=== PATIENT | female | born 1970 | race Caucasian/White ===

== ENCOUNTER → 2020-08-26 10:08 | Outpatient (CLI) | payer BC, SELFPAY ==
--- NOTE | 2020-08-26 10:08 | MM_ITS ---
PROCEDURE INFORMATION: Exam: MG Screening 3D Mammography Exam date and time: 08/26/2020 10:08 AM Age: 49 years old Clinical indication: Screening mammogram TECHNIQUE: Imaging protocol: Screening tomosynthesis and 2D mammography including computer-aided detection (CAD) when performed. COMPARISON: No relevant prior studies available. FINDINGS: MAMMOGRAPHY: Breast composition: There are scattered areas of fibroglandular density. Mass: None. Architectural distortion: No new or suspicious architectural distortion. Calcifications: benign-appearing calcifications are present. No new or suspicious cluster of microcalcifications have developed. Asymmetric density: No new or suspicious asymmetric density is present Skin thickening: None. Axillary adenopathy: None. IMPRESSION: No mammographic evidence of malignancy. Recommend annual screening mammography unless otherwise clinically indicated. ASSESSMENT: BI-RADS category 2: Benign
== END ==
PROVIDERS: PCP Family Medicine; Visit Provider Obstetrics & Gynecology
DX: Z12.31 Encounter for screening mammogram for malignant neoplasm of breast (principal)
CPT/HCPCS: 77063; 77067

== ENCOUNTER 2025-03-10 05:25 | Emergency (ER) | payer BC, SELFPAY ==
[2025-03-10] VITALS (16 sets, daily range): BP systolic 95–124; BP diastolic 54–74; PULSE 70–114; RESP 16; TEMP 36.8–36.9; O2SAT 96–100; BMI 31.3
--- NOTE | 2025-03-10 05:30 | XR_ITS ---
PROCEDURE INFORMATION: Exam: XR Chest Exam date and time: 03/10/2025 5:48 AM Age: 54 years old Clinical indication: Other: Cardiac workup TECHNIQUE: Imaging protocol: Radiologic exam of the chest. Views: 1 view. COMPARISON: No relevant prior studies available. FINDINGS: Lungs: Unremarkable. No consolidation. Pleural spaces: Unremarkable. No pleural effusion. No pneumothorax. Heart/Mediastinum: Unremarkable. No cardiomegaly. Bones/joints: Unremarkable. IMPRESSION: No acute findings.
--- NOTE | 2025-03-10 05:32 | ECG_ITS ---
APPROVED REPORT Exam: Resting ECG HR:96 bpm ECG Measurements Heart Rate 96 AXES AK 141 P 55 QRSd 98 QRS 27 QT 353 T 55 QTc 406 Conclusion SINUS RHYTHM NORMAL ECG Electronically signed by : JESSE SOUSA, 03/11/2025 07:08:19
--- OUTSIDE RECORDS SUMMARY | 2025-03-10 05:32 | XMS_ITS | Clinical Summary ---
Author Organization [facility] Address [address] [place] [address] Care Team Providers Care Rn Cvor Name Role Phone Unavailable Primary Care Provider Unavailabl e Social History Tobacco Use Types Packs/Day Years Used Date Smoking Tobacco: Never Assessed Abuse Screen Answer Date Recorded Unsafe at Home or Work/School Not on file Feels Threatened by Someone? Not on file 11/2022 Does Anyone Keep You from Co ntacting Others or Doint Things Outside the Home? Not on file 12/25/2022 Physical Sign of Abuse Present Not on file 1 Housing Stability Answer Date Recorded Current Living Arrangements Not on file 11/2022 Potentially Unsafe Housing Conditions Not on magali e 12/25/2022 Family and Community Support Answer Kobi e Recorded Help with Day-to-Day Activities Not on file 12/25/2022 Lonely or Isolated Not on file 12/25/2022 Employment Answer Date Recorded Do you want help finding or keeping work or a randall b? Not on file 12/25/2022 Disabilities Answer Date Recorded Concentrating, Remembering, or Making Decisions Difficulty Not on file 12/25/2022 Doing Errands Independently Difficulty Not on fi le 12/25/2022 Education Answer Date Recorded Help with school or training? Not on file Preferred Language Not on file 12/25/2022 Comments Unknown Sex and Gender Information Value Date Recorded Sex Assigned at Not on file Legal Sex Female 11:51 AM EDT Gender Identity Not on file Sexual Orientation Not on file Plan of Treatment Health Maintenance Due Date Last Done Comments ANNUAL PHYSICAL 1969 Annual Gynecologic Pelvic and Breast Exam 1969 HEPATITIS C SCREENING 1969 TDAP/TD VACCINES (1 - Tdap) 1988 MAMMOGRAM 2009 COLOGUARD 2014 COLON CANCER SCREENING 5 YEAR SIGMOIDOSCOPY 2014 COLONOSCOPY [address] CANCER SCREENING [address] COLONOGRAPHY 2014 FECAL OCCULT BLOOD TEST 2014 FIT Testing (1 year) 2014 Pneumococcal Vaccine 50+ (1 of 1 - PCV) 10/19/2019 ZOSTER VACCINE (1 of 2) 10/19/2019 INFLUENZA VACCINE 10/17/2024
[2025-03-10] MEDS: LACTATED RINGERS 1000ML 1,000 ML 999 ML IV (05:41)
[2025-03-10 05:45] LABS: Hematocrit 41.9 % (37.0-47.0); Hemoglobin 14.3 g/dL (12.2-16.2); Immature Granulocytes % 0.2 %; Mean Corpuscular HGB Conc 34.1 g/dL (31.8-35.4); Mean Corpuscular Hemoglobin 31.6 pg (27.0-31.2); Mean Corpuscular Volume 92.5 fl (81-99); Nucleated Red Blood Cells % 0 %; Platelet Count 197 K/mm3 (142-424); Red Blood Count 4.53 M/mm3 (4.20-5.40); Red Cell Distribution Width-SD 45.2 fL; White Blood Count 8.4 K/mm3 (4.8-10.8)
[2025-03-10 05:54] LABS: Albumin Level 4.5 g/dl (3.5-5.0); Chloride 104 mmol/L (98-107); Sodium 135 mmol/L (136-145)
[2025-03-10 05:55] LABS: Potassium 4.2 mmoL/L (3.5-5.1)
[2025-03-10 05:57] LABS: Alanine Aminotransferase 59 U/L (12-78); Albumin/Globulin Ratio 1.9 (1.1-1.8); Alkaline Phosphatase 96 U/L (38-126); Anion Gap 16.2 mEq/L (5-15); Aspartate Amino Transferase 76 U/L (14-36); Bilirubin,Total 0.7 mg/dl (0.2-1.3); Blood Urea Nitrogen 20 mg/dl (7-17); Carbon Dioxide 19 mmol/L (22.0-30.0); Creatinine Clearance Estimated 101 mL/min (50-200); Creatinine,Serum 0.90 mg/dl (0.52-1.04); Estimated Glomerular Filt Rate 65 ml/min (>60); GFR (African American) 79 ML/MIN (>60); Globulin 2.4 g/dL (1.3-3.2); Glucose 150 mg/dl (74-100); Total Protein,Serum 6.9 g/dl (6.3-8.2)
[2025-03-10 05:58] LABS: Calcium 9.5 mg/dl (8.4-10.2)
[2025-03-10 06:01] LABS: INR 0.92 (0.9-1.1); Prothrombin Time 10.3 seconds (10.1-12.5)
--- NOTE | 2025-03-10 06:01 | CT_ITS ---
FINAL REPORT TECHNIQUE: IV contrast enhanced exam This study was performed with techniques to keep radiation doses as low as reasonably achievable, (ALARA). Individualized dose reduction techniques using automated exposure control or adjustment of mA and/or kV according to the patient's size were employed. CLINICAL HISTORY: nausea, diarrhea, mild diffuse abd pain COMPARISON: None FINDINGS: CT ABDOMEN PELVIS WITH CONTRAST: Abdomen: Lung bases are clear. The gallbladder is surgically absent. Liver has an unremarkable CT appearance. The spleen, pancreas and adrenal glands are unremarkable. Kidneys show no mass or obstruction. There is mild central mesenteric adenopathy that may be secondary to mesenteric adenitis or panniculitis. No bowel obstruction, internal hernia, or fluid collection is seen. Pelvis: The appendix is normal in appearance. Distal small bowel loops are fluid-filled. Adenopathy is noted in the right lower quadrant adjacent to small bowel loops. The bladder is mildly distended. The uterus and ovaries are unremarkable in appearance. IMPRESSION: 1. There are fluid-filled distal small bowel loops which may be seen with enteritis without obstruction. 2. Mild central mesenteric adenopathy, which may represent adenitis or panniculitis, with adenopathy seen in the right lower quadrant adjacent to small bowel loops as well. Reviewed, Interpreted and Dictated by Eren Wagner MD Transcribed by Kori Rodriguez Authenticated and [facility]
[2025-03-10 06:10] LABS: Troponin I < 0.01 ng/ml (0.00-0.034)
[2025-03-10] MEDS: PROCHLORPERAZINE 10MG TABLET 10 MG PO (06:17)
[2025-03-10] MEDS: KETOROLAC 30MG/ML VIAL 30 MG IV (06:18)
[2025-03-10 06:24] LABS: Magnesium 1.8 mg/dl (1.6-2.3)
--- NOTE | 2025-03-10 06:34 | ED_ITS ---
Discharge Plan Disposition Patient Disposition: Home, Self-Care Prescriptions Prescriptions: New prochlorperazine maleate [Compazine] 10 mg tablet 10 mg PO Q8H PRN (Reason: nausea and vomiting and headache) 7 Days Qty: 20 0RF Rx Instructions: Please take with 800 mg of ibuprofen and 25 mg of Benadryl and expect sedation ondansetron 4 mg tablet,disintegrating 4 mg PO Q6H PRN (Reason: nausea and vomiting) 5 Days Qty: 20 0RF No Action lisinopril 2.5 mg tablet 2.5 mg PO QDAY atorvastatin 40 mg tablet 40 mg PO QDAY dapaglifloz propaned-metformin [Xigduo XR] 5-500 mg tablet, IR - ER, biphasic 24hr 2 tab PO ONCE Januvia 100 mg tablet 100 mg PO DAILY Referrals Follow up/Referrals: Yehuda Beach MD [Primary Care Provider, Medical] - See instructions Activity Restrictions/Add. Instructions Additional Instructions/Restrictions: Your symptoms today were consistent with a viral syndrome with your headache and nausea and your CT scan that demonstrated fluid-filled small bowel loops consistent with enteritis. No antibiotics are indicated. Supportive care including symptomatic medications have been sent to your pharmacy. You may take your Zofran as needed for your nausea and vomiting and if you continue to have a significant headache Compazine has been prescribed which I recommend to be taken with an NSAID such as ibuprofen and Benadryl. Please keep yourself well- hydrated return with any significant worsening of your symptoms. Clinical Impressions Clinical Impression: Nausea, Headache, Enteritis, Acute viral syndrome, Acute dehydration Print Language Print Language: Arabic Discharge ED Provider: Rosalba Iqbal General Adult HPI <Rosalba Iqbal MD - Last Filed: 03/10/25 06:51> General Chief complaint: Weakness Stated complaint: weakness/dizziness Time Seen by Provider: 03/10/25 05:31 Mode of Arrival: EMS Source of Information: Patient Description of Symptoms (Recalled from ER Triage Doc. by RN): Pt presents with nausea, weakness, dizziness and a headache that has worsened over the past 24hrs. Pt states she had 2 syncope episodes yesterday, headache and nausea when she went to bed last night , took Tylenol and a zofran with no relief. EMS gave 4 mg Zofran in route. Pt denies any pain other than her headache, no SOA, no fever. History of Present Illness HPI narrative: 54-year-old female presents to the ER complaining of nausea with generalized weakness, lightheadedness, and headache that started 24 hours ago. Patient reports she had 2 syncopal episodes yesterday and states she feels like she will pass out anytime she stands up. She states she started with headache followed by nausea. She woke up with a headache 24 hours ago throughout her entire head. She states it radiates from the back of the head up over the top. She is sensitive to light. She has no history of migraines. She states she has had chills and generalized weakness and felt like she had the flu. She reports she took Tylenol overnight as well as some Zofran with no relief. EMS provided 4 mg of Zofran during transportation and patient reports improvement of her nausea. Patient denies any room spinning dizziness, numbness, tingling, or weakness, no thunderclap onset of headache, no maximum intensity at onset, no documented fever. Denies chest pain or difficulty breathing, no cough or congestion. Denies dysuria or hematuria. No other associated symptoms. Related Data Home Medications ?Medication ?Instructions ?Recorded ?Confirmed atorvastatin 40 mg tablet 40 mg PO QDAY 03/26/1710/10 lisinopril 2.5 mg tablet 2.5 mg PO QDAY 03/26/1709/17 dapagliflozin propanediol 5 2 tab PO ONCE 06/14/17 mg-metformin ER 500 mg tablet,ext rel 24hr (Xigduo XR) sitagliptin phosphate 100 mg 100 mg PO DAILY 01/16/19 01/16/19 tablet (Januvia) Previous Rx's ?Medication ?Instructions ?Recorded ondansetron 4 mg disintegrating 4 mg PO Q6H PRN nausea and 03/10/25 tablet vomiting 5 days #20 tabs prochlorperazine maleate 10 mg 10 mg PO Q8H PRN nausea and 03/10/25 tablet (Compazine) vomiting and headache 7 days #20 tabs Allergies Allergy/AdvReac Type Severity Reaction Status Date / Time No Known Allergies Allergy Verified 08/20/20 10:45 [facility] <Rosalba Iqbal MD - Last Filed: 03/10/25 06:51> [facility] Disclaimer: The information contained in this section may have been updated after the patient was seen, as this information can be updated by other users. Social History Smoking Status: Never smoker alcohol intake: never substance use type: denies use current occupational status: employed Travel in the last 8 weeks?: None household members: family housing: house Have you lived/traveled outside [place] in past 30 days?: No Contact w/someone who lives/traveled outside [place] past 30 days?: No Exposure to someone with infectious disease in past 14 days?: No Do you have a fever (greater than 100.4 F or 38 C)?: No Have you tested positive for COVID-19?: No Exposed to someone with COVID-19 in past 14 days?: No Do you have a sore throat?: No Do you have a cough?: No Do you have any weakness?: No Do you have any diarrhea?: No Are you experiencing any unusual bleeding?: No Do you have any muscle aches/pain?: No Do you have any abdominal pain?: No Are you experiencing loss of taste or smell?: No Other Medical History Have you received the Flu Vaccine for this season: No Have you received the Pneumonia Vaccine: No <Rosalba Iqbal MD - Last Filed: 03/10/25 06:51> ROS Obtained: Yes Systems reviewed as appropriate & no additional complaints except as documented Per HPI Physical Exam <Rosalba Iqbal MD - Last Filed: 03/10/25 06:51> General General appearance: alert and in no apparent distress Head Head exam: atraumatic and normocephalic Eye Eye exam: Present PERRL and EOMI; Absent jaundice, conjunctival injection or nystagmus ENT ENT exam: Present mucous membranes moist Neck Neck exam: Present normal inspection and full ROM; Absent tenderness or meningismus Chest Chest inspection: Present symmetric chest wall rise Respiratory Respiratory exam: Present normal lung sounds bilaterally; Absent respiratory distress, wheezes or stridor Cardiovascular Cardiovascular exam: Present regular rate and normal rhythm Abdominal Exam Abdominal exam: Present soft; Absent distention, tenderness (Mild diffuse discomfort but no true tenderness), guarding or rebound Extremities Exam Extremities exam: Present full ROM and normal capillary refill; Absent edema Neurological Exam Neurological exam: Present alert and oriented X3; Absent motor sensory deficit Psychiatric Psychiatric exam: Present normal affect and normal mood Skin Skin exam: Present warm and dry Medical Decision Making <Rosalba Iqbal MD - Last Filed: 03/10/25 06:51> Medical Records Medical records reviewed: Yes I reviewed the patient's medical records. Screening: Per USPSTF and CDC recommendations, given the prevalence of disease in our region, it is our hospital?s policy to screen for HIV and viral Hepatitis for all patients aged 18 and over and those with ongoing risk factors. Yomi Inquiry Pt receiving controlled substance: No Vital Signs: 03/10/25 05:34 03/10/25 05:35 03/10/25 05:37 Temperature 98.4 F Temperature Source Oral Pulse Rate 99 H Pulse Rate [Left] 99 H Pulse Rate [Orthostatic Lying] Pulse Rate [Orthostatic Sitting] Pulse Rate [Orthostatic Standing] Respiratory Rate 16 Blood Pressure 124/74 Blood Pressure [Orthostatic Lying] Blood Pressure [Orthostatic Sitting] Blood Pressure [Orthostatic Standing] Blood Pressure [Right Arm] 124/74 Blood Pressure Mean 89 Blood Pressure Mean [Right Arm] 90 Blood Pressure Source [Right Arm] Automatic Cuff Blood Pressure Position [Right Arm] Supine 02 Sat by Pulse Oximetry 98 98 Oxygen Delivery Method Room Air Room Air 03/10/25 05:45 03/10/25 06:00 03/10/25 06:00 Temperature Temperature Source Pulse Rate 96 H 103 H Pulse Rate [Left] Pulse Rate [Orthostatic Lying] Pulse Rate [Orthostatic Sitting] Pulse Rate [Orthostatic Standing] Respiratory Rate Blood Pressure 101/66 L Blood Pressure [Orthostatic Lying] Blood Pressure [Orthostatic Sitting] Blood Pressure [Orthostatic Standing] Blood Pressure [Right Arm] Blood Pressure Mean 77 Blood Pressure Mean [Right Arm] Blood Pressure Source [Right Arm] Blood Pressure Position [Right Arm] 02 Sat by Pulse Oximetry 98 99 Oxygen Delivery Method Room Air Room Air 03/10/25 06:15 03/10/25 06:30 03/10/25 06:30 Temperature Temperature Source Pulse Rate 99 H 98 H Pulse Rate [Left] Pulse Rate [Orthostatic Lying] Pulse Rate [Orthostatic Sitting] Pulse Rate [Orthostatic Standing] Respiratory Rate Blood Pressure 119/71 Blood Pressure [Orthostatic Lying] Blood Pressure [Orthostatic Sitting] Blood Pressure [Orthostatic Standing] Blood Pressure [Right Arm] Blood Pressure Mean 85 Blood Pressure Mean [Right Arm] Blood Pressure Source [Right Arm] Blood Pressure Position [Right Arm] 02 Sat by Pulse Oximetry 98 99 Oxygen Delivery Method Room Air Room Air 03/10/25 06:41 03/10/25 06:45 03/10/25 06:49 Temperature Temperature Source Pulse Rate 99 H Pulse Rate [Left] Pulse Rate [Orthostatic Lying] 98 H Pulse Rate [Orthostatic Sitting] 102 H Pulse Rate [Orthostatic Standing] 114 H Respiratory Rate Blood Pressure 113/68 Blood Pressure [Orthostatic Lying] 113/68 Blood Pressure [Orthostatic Sitting] 107/64 L Blood Pressure [Orthostatic Standing] 106/65 L Blood Pressure [Right Arm] Blood Pressure Mean 77 Blood Pressure Mean [Right Arm] Blood Pressure Source [Right Arm] Blood Pressure Position [Right Arm] 02 Sat by Pulse Oximetry 100 Oxygen Delivery Method Room Air 03/10/25 06:49 03/10/25 06:50 03/10/25 06:50 Temperature Temperature Source Pulse Rate 98 H 104 H Pulse Rate [Left] Pulse Rate [Orthostatic Lying] Pulse Rate [Orthostatic Sitting] Pulse Rate [Orthostatic Standing] Respiratory Rate Blood Pressure 107/64 L Blood Pressure [Orthostatic Lying] Blood Pressure [Orthostatic Sitting] Blood Pressure [Orthostatic Standing] Blood Pressure [Right Arm] Blood Pressure Mean 75 Blood Pressure Mean [Right Arm] Blood Pressure Source [Right Arm] Blood Pressure Position [Right Arm] 02 Sat by Pulse Oximetry 99 100 Oxygen Delivery Method Room Air Room Air 03/10/25 06:51 03/10/25 07:00 03/10/25 07:00 Temperature Temperature Source Pulse Rate 98 H Pulse Rate [Left] Pulse Rate [Orthostatic Lying] Pulse Rate [Orthostatic Sitting] Pulse Rate [Orthostatic Standing] Respiratory Rate Blood Pressure 106/65 L 101/54 L Blood Pressure [Orthostatic Lying] Blood Pressure [Orthostatic Sitting] Blood Pressure [Orthostatic Standing] Blood Pressure [Right Arm] Blood Pressure Mean 74 68 Blood Pressure Mean [Right Arm] Blood Pressure Source [Right Arm] Blood Pressure Position [Right Arm] 02 Sat by Pulse Oximetry 99 Oxygen Delivery Method Room Air 03/10/25 07:34 03/10/25 08:01 Temperature Temperature Source Pulse Rate 100 H 93 H Pulse Rate [Left] Pulse Rate [Orthostatic Lying] Pulse Rate [Orthostatic Sitting] Pulse Rate [Orthostatic Standing] Respiratory Rate Blood Pressure 95/66 L 97/63 L Blood Pressure [Orthostatic Lying] Blood Pressure [Orthostatic Sitting] Blood Pressure [Orthostatic Standing] Blood Pressure [Right Arm] Blood Pressure Mean Blood Pressure Mean [Right Arm] Blood Pressure Source [Right Arm] Blood Pressure Position [Right Arm] 02 Sat by Pulse Oximetry 98 96 Oxygen Delivery Method Lab Data Lab Results 03/10/25 05:30: WBC 8.4, RBC 4.53, Hgb 14.3, Hct 41.9, MCV 92.5, MCH 31.6 H, MCHC 34.1, RDW 13.2, Plt Count 197, MPV 10.3, Neut % (Auto) 87.4 H, Lymph % (Auto) 8.0 L, [place] % (Auto) 2.1, Eos % (Auto) 1.9, Baso % (Auto) 0.4, Neut # (Auto) 7.3, Lymph # (Auto) 0.7, [place] # (Auto) 0.2, Eos # (Auto) 0.2, Baso # (Auto) 0.0, PT 10.3, INR 0.92, Sodium 135 L, Potassium 4.2, Chloride 104, Carbon Dioxide 19 L, Anion Gap 16.2 H, BUN 20 H, Creatinine 0.90, Estimated Creat Clear 101, Estimated GFR 65, Est GFR ( Amer) 79, Glucose 150 H, Calcium 9.5, Magnesium 1.8, Total Bilirubin 0.7, AST 76 H, ALT 59, Alkaline Phosphatase 96, Troponin I < 0.01, Total Protein 6.9, Albumin 4.5, Globulin 2.4, A lbumin/Globulin Ratio 1.9 H, Lipase 110 03/10/25 07:10: Urine Color Yellow, Urine Appearance Clear, Urine pH 6.0, Ur Specific [place] 1.020, Urine Protein Negative, Urine Glucose (UA) 3+, Urine Ketones 3+, Urine Blood Negative, Urine Nitrate Negative, Urine Bilirubin 1+ A, Urine Urobilinogen 0.2, Ur Leukocyte Esterase Negative, Urine RBC None, Urine WBC 3-5, Ur Squamous Epith Cells Occasional, Urine Bacteria Trace 03/10/25 05:30 03/10/25 05:30 Orders (Tests/Meds): ED MEDICATIONS Discontinued Medications Generic Name Dose Route Start Last Admin Trade Name Freq PRN Reason Stop Dose Admin Diphenhydramine HCl 25 mg 03/10/25 06:01 03/10/25 06:17 Diphenhydramine 50mg/Ml Vial IV 03/10/25 06:02 25 mg ONCE ONE Administration Lactated Ringer's 1,000 mls @ 999 mls/hr 03/10/25 05:30 03/10/25 05:41 Lactated Ringer's 1000 Ml Bag IV 03/10/25 06:30 999 mls/hr .Q1H1M ONE Administration Iopamidol 75 ml 03/10/25 06:44 03/10/25 06:45 Iopamidol-370 (76%);100ml Bottle IV 03/10/25 06:45 75 ml ONCE ONE Administration Ketorolac Tromethamine 30 mg 03/10/25 06:01 03/10/25 06:18 Ketorolac 30mg/Ml Vial IV 03/10/25 06:02 30 mg ONCE ONE Administration Prochlorperazine Maleate 10 mg 03/10/25 06:03 03/10/25 06:17 Prochlorperazine 10mg Tablet PO 03/10/25 06:04 10 mg ONCE ONE Administration Sodium Chloride 10 ml 03/10/25 06:44 03/10/25 06:45 Sodium Chloride 0.9% 10ml Syr (Rad Only) IV 03/10/25 06:45 10 ml ONCE ONE Administration ORDERS Category Date Time Status CT abdomen pelvis w con Stat Cat Scan 03/10/25 06:01 Taken CXR --portable [XR chest portable] Stat Exams 03/10/25 05:30 Taken CBC w/Auto Diff [Complete Blood Count Auto Diff] Stat Lab 03/10/25 05:30 Completed CMP [Comprehensive Metabolic Panel] Stat Lab 03/10/25 05:30 Completed Lipase Stat Lab 03/10/25 05:30 Completed MAG [Magnesium] Stat Lab 03/10/25 05:30 Completed PT INR [Prothrombin Time INR] Stat Lab 03/10/25 05:30 Completed Trop I [Troponin I] Stat Lab 03/10/25 05:30 Completed Urinalysis and Microscopic Stat Lab 03/10/25 07:10 Completed Medical Decision Narrative: In summary, this 54-year-old female with comorbidities including hypertension, hyperlipidemia, previous gastric bypass presents to the emergency department today with headache, nausea, lightheadedness upon standing, and 2 episodes of syncope after standing in the last 24 hours. On initial evaluation patient is hemodynamically stable, afebrile, GCS 15, no neurologic deficits, no nystagmus, no meningeal signs, full range of motion of the neck, benign abdominal exam, benign cardiopulmonary exam. Differential diagnosis includes but is not limited to viral syndrome, migraine, headache, urinary tract infection, with patient's previous surgical history I considered the possibility of bowel obstruction, pancreatitis, electrolyte abnormality, dehydration, among others. Based on these concerns, I ordered []. ECG personally interpreted demonstrates sinus rhythm, rate 96, normal axis, normal CT and QTc, no STEMI. Patient received Toradol, LR, Compazine, Benadryl for treatment. Labs personally reviewed demonstrate no leukocytosis or anemia, normal platelets, PT/INR normal, CMP with mild prerenal azotemia but patient is already receiving IV fluids. Normal magnesium, undetectable initial troponin very reassuring in the setting of nonischemic ECG and over 24 hours of symptoms. I do not believe patient requires serial troponin. XR personally interpreted demonstrates no acute intrathoracic abnormality, see radiology read for final interpretation. CT abdomen pelvis personally interpreted demonstrates no evidence of bowel obstruction but there does appear to be an abnormal fluid collection in the right upper quadrant, unclear to me what this is at this time. Radiology read pending. Lipase, urine, CT imaging results pending at the time of physician handoff. Patient handed off to Dr. Liu in stable condition for continued management and disposition. <Bobbi Liu MD - Last Filed: 03/10/25 08:40> Vital Signs: 03/10/25 05:34 03/10/25 05:35 03/10/25 05:37 Temperature 98.4 F Temperature Source Oral Pulse Rate 99 H Pulse Rate [Left] 99 H Pulse Rate [Orthostatic Lying] Pulse Rate [Orthostatic Sitting] Pulse Rate [Orthostatic Standing] Respiratory Rate 16 Blood Pressure 124/74 Blood Pressure [Orthostatic Lying] Blood Pressure [Orthostatic Sitting] Blood Pressure [Orthostatic Standing] Blood Pressure [Right Arm] 124/74 Blood Pressure Mean 89 Blood Pressure Mean [Right Arm] 90 Blood Pressure Source [Right Arm] Automatic Cuff Blood Pressure Position [Right Arm] Supine 02 Sat by Pulse Oximetry 98 98 Oxygen Delivery Method Room Air Room Air 03/10/25 05:45 03/10/25 06:00 03/10/25 06:00 Temperature Temperature Source Pulse Rate 96 H 103 H Pulse Rate [Left] Pulse Rate [Orthostatic Lying] Pulse Rate [Orthostatic Sitting] Pulse Rate [Orthostatic Standing] Respiratory Rate Blood Pressure 101/66 L Blood Pressure [Orthostatic Lying] Blood Pressure [Orthostatic Sitting] Blood Pressure [Orthostatic Standing] Blood Pressure [Right Arm] Blood Pressure Mean 77 Blood Pressure Mean [Right Arm] Blood Pressure Source [Right Arm] Blood Pressure Position [Right Arm] 02 Sat by Pulse Oximetry 98 99 Oxygen Delivery Method Room Air Room Air 03/10/25 06:15 03/10/25 06:30 03/10/25 06:30 Temperature Temperature Source Pulse Rate 99 H 98 H Pulse Rate [Left] Pulse Rate [Orthostatic Lying] Pulse Rate [Orthostatic Sitting] Pulse Rate [Orthostatic Standing] Respiratory Rate Blood Pressure 119/71 Blood Pressure [Orthostatic Lying] Blood Pressure [Orthostatic Sitting] Blood Pressure [Orthostatic Standing] Blood Pressure [Right Arm] Blood Pressure Mean 85 Blood Pressure Mean [Right Arm] Blood Pressure Source [Right Arm] Blood Pressure Position [Right Arm] 02 Sat by Pulse Oximetry 98 99 Oxygen Delivery Method Room Air Room Air 03/10/25 06:41 03/10/25 06:45 03/10/25 06:49 Temperature Temperature Source Pulse Rate 99 H Pulse Rate [Left] Pulse Rate [Orthostatic Lying] 98 H Pulse Rate [Orthostatic Sitting] 102 H Pulse Rate [Orthostatic Standing] 114 H Respiratory Rate Blood Pressure 113/68 Blood Pressure [Orthostatic Lying] 113/68 Blood Pressure [Orthostatic Sitting] 107/64 L Blood Pressure [Orthostatic Standing] 106/65 L Blood Pressure [Right Arm] Blood Pressure Mean 77 Blood Pressure Mean [Right Arm] Blood Pressure Source [Right Arm] Blood Pressure Position [Right Arm] 02 Sat by Pulse Oximetry 100 Oxygen Delivery Method Room Air 03/10/25 06:49 03/10/25 06:50 03/10/25 06:50 Temperature Temperature Source Pulse Rate 98 H 104 H Pulse Rate [Left] Pulse Rate [Orthostatic Lying] Pulse Rate [Orthostatic Sitting] Pulse Rate [Orthostatic Standing] Respiratory Rate Blood Pressure 107/64 L Blood Pressure [Orthostatic Lying] Blood Pressure [Orthostatic Sitting] Blood Pressure [Orthostatic Standing] Blood Pressure [Right Arm] Blood Pressure Mean 75 Blood Pressure Mean [Right Arm] Blood Pressure Source [Right Arm] Blood Pressure Position [Right Arm] 02 Sat by Pulse Oximetry 99 100 Oxygen Delivery Method Room Air Room Air 03/10/25 06:51 03/10/25 07:00 03/10/25 07:00 Temperature Temperature Source Pulse Rate 98 H Pulse Rate [Left] Pulse Rate [Orthostatic Lying] Pulse Rate [Orthostatic Sitting] Pulse Rate [Orthostatic Standing] Respiratory Rate Blood Pressure 106/65 L 101/54 L Blood Pressure [Orthostatic Lying] Blood Pressure [Orthostatic Sitting] Blood Pressure [Orthostatic Standing] Blood Pressure [Right Arm] Blood Pressure Mean 74 68 Blood Pressure Mean [Right Arm] Blood Pressure Source [Right Arm] Blood Pressure Position [Right Arm] 02 Sat by Pulse Oximetry 99 Oxygen Delivery Method Room Air 03/10/25 07:34 03/10/25 08:01 Temperature Temperature Source Pulse Rate 100 H 93 H Pulse Rate [Left] Pulse Rate [Orthostatic Lying] Pulse Rate [Orthostatic Sitting] Pulse Rate [Orthostatic Standing] Respiratory Rate Blood Pressure 95/66 L 97/63 L Blood Pressure [Orthostatic Lying] Blood Pressure [Orthostatic Sitting] Blood Pressure [Orthostatic Standing] Blood Pressure [Right Arm] Blood Pressure Mean Blood Pressure Mean [Right Arm] Blood Pressure Source [Right Arm] Blood Pressure Position [Right Arm] 02 Sat by Pulse Oximetry 98 96 Oxygen Delivery Method Lab Data Lab results reviewed: Yes I reviewed the patient's lab results. Lab Results 03/10/25 05:30: WBC 8.4, RBC 4.53, Hgb 14.3, Hct 41.9, MCV 92.5, MCH 31.6 H, MCHC 34.1, RDW 13.2, Plt Count 197, MPV 10.3, Neut % (Auto) 87.4 H, Lymph % (Auto) 8.0 L, [place] % (Auto) 2.1, Eos % (Auto) 1.9, Baso % (Auto) 0.4, Neut # (Auto) 7.3, Lymph # (Auto) 0.7, [place] # (Auto) 0.2, Eos # (Auto) 0.2, Baso # (Auto) 0.0, PT 10.3, INR 0.92, Sodium 135 L, Potassium 4.2, Chloride 104, Carbon Dioxide 19 L, Anion Gap 16.2 H, BUN 20 H, Creatinine 0.90, Estimated Creat Clear 101, Estimated GFR 65, Est GFR ( Amer) 79, Glucose 150 H, Calcium 9.5, Magnesium 1.8, Total Bilirubin 0.7, AST 76 H, ALT 59, Alkaline Phosphatase 96, Troponin I < 0.01, Total Protein 6.9, Albumin 4.5, Globulin 2.4, A lbumin/Globulin Ratio 1.9 H, Lipase 110 03/10/25 07:10: Urine Color Yellow, Urine Appearance Clear, Urine pH 6.0, Ur Specific [place] 1.020, Urine Protein Negative, Urine Glucose (UA) 3+, Urine Ketones 3+, Urine Blood Negative, Urine Nitrate Negative, Urine Bilirubin 1+ A, Urine Urobilinogen 0.2, Ur Leukocyte Esterase Negative, Urine RBC None, Urine WBC 3-5, Ur Squamous Epith Cells Occasional, Urine Bacteria Trace Orders (Tests/Meds): ED MEDICATIONS Discontinued Medications Generic Name Dose Route Start Last Admin Trade Name Freq PRN Reason Stop Dose Admin Diphenhydramine HCl 25 mg 03/10/25 06:01 03/10/25 06:17 Diphenhydramine 50mg/Ml Vial IV 03/10/25 06:02 25 mg ONCE ONE Administration Lactated Ringer's 1,000 mls @ 999 mls/hr 03/10/25 05:30 03/10/25 05:41 Lactated Ringer's 1000 Ml Bag IV 03/10/25 06:30 999 mls/hr .Q1H1M ONE Administration Iopamidol 75 ml 03/10/25 06:44 03/10/25 06:45 Iopamidol-370 (76%);100ml Bottle IV 03/10/25 06:45 75 ml ONCE ONE Administration Ketorolac Tromethamine 30 mg 03/10/25 06:01 03/10/25 06:18 Ketorolac 30mg/Ml Vial IV 03/10/25 06:02 30 mg ONCE ONE Administration Prochlorperazine Maleate 10 mg 03/10/25 06:03 03/10/25 06:17 Prochlorperazine 10mg Tablet PO 03/10/25 06:04 10 mg ONCE ONE Administration Sodium Chloride 10 ml 03/10/25 06:44 03/10/25 06:45 Sodium Chloride 0.9% 10ml Syr (Rad Only) IV 03/10/25 06:45 10 ml ONCE ONE Administration ORDERS Category Date Time Status CT abdomen pelvis w con Stat Cat Scan 03/10/25 06:01 Taken CXR --portable [XR chest portable] Stat Exams 03/10/25 05:30 Taken CBC w/Auto Diff [Complete Blood Count Auto Diff] Stat Lab 03/10/25 05:30 Completed CMP [Comprehensive Metabolic Panel] Stat Lab 03/10/25 05:30 Completed Lipase Stat Lab 03/10/25 05:30 Completed MAG [Magnesium] Stat Lab 03/10/25 05:30 Completed PT INR [Prothrombin Time INR] Stat Lab 03/10/25 05:30 Completed Trop I [Troponin I] Stat Lab 03/10/25 05:30 Completed Urinalysis and Microscopic Stat Lab 03/10/25 07:10 Completed Medical Decision Narrative: In summary, this 54-year-old female with comorbidities including hypertension, hyperlipidemia, previous gastric bypass presents to the emergency department today with headache, nausea, lightheadedness upon standing, and 2 episodes of syncope after standing in the last 24 hours. On initial evaluation patient is hemodynamically stable, afebrile, GCS 15, no neurologic deficits, no nystagmus, no meningeal signs, full range of motion of the neck, benign abdominal exam, benign cardiopulmonary exam. Differential diagnosis includes but is not limited to viral syndrome, migraine, headache, urinary tract infection, with patient's previous surgical history I considered the possibility of bowel obstruction, pancreatitis, electrolyte abnormality, dehydration, among others. Based on these concerns, I ordered []. ECG personally interpreted demonstrates sinus rhythm, rate 96, normal axis, normal CT and QTc, no STEMI. Patient received Toradol, LR, Compazine, Benadryl for treatment. Labs personally reviewed demonstrate no leukocytosis or anemia, normal platelets, PT/INR normal, CMP with mild prerenal azotemia but patient is already receiving IV fluids. Normal magnesium, undetectable initial troponin very reassuring in the setting of nonischemic ECG and over 24 hours of symptoms. I do not believe patient requires serial troponin. XR personally interpreted demonstrates no acute intrathoracic abnormality, see radiology read for final interpretation. CT abdomen pelvis personally interpreted demonstrates no evidence of bowel obstruction but there does appear to be an abnormal fluid collection in the right upper quadrant, unclear to me what this is at this time. Radiology read pending. Lipase, urine, CT imaging results pending at the time of physician handoff. Patient handed off to Dr. Liu in stable condition for continued management and disposition. Reassessment this is Dr. Liu at 8:39 AM labs reviewed and CT scan performed which I personally interpreted which shows no evidence of any emergent medical condition in the abdomen. Patient does have fluid-filled loops of small bowel consistent with enteritis and some mild adenopathy likely reactive. Overall with patient's headache and nausea enteritis this is consistent with a viral syndrome. Patient is been given supportive medications he is feeling much better on reassessment. She does have evidence of some mild dehydration she has been advised to continue to hydrate aggressively at home and Zofran and Compazine have been prescribed for symptomatic control. Patient discharged in stable and improved condition. Critical Care <Rosalba Iqbal MD - Last Filed: 03/10/25 06:51> Critical Care Time Critical Care Time: No
[2025-03-10] MEDS: IOPAMIDOL-370 (76%);100ML BOTTLE 75 ML IV (06:45)
[2025-03-10] MEDS: SODIUM CHLORIDE 0.9% 10ML SYR (RAD ONLY) 10 ML IV (06:45)
[2025-03-10 06:52] LABS: Lipase 110 U/L (23-300)
[2025-03-10 07:15] LABS: Microscopic, Urine URINE MICROSCOPIC (MICROSCOPIC)
[2025-03-10 07:39] LABS: Color,Urine YELLOW (Yellow); Glucose,Urine (UA) 3+ (Negative); Ketones,Urine 3+ (Negative); Leukocyte Esterase,Urine Negative (Negative); PH,Urine 6.0 (5.0-8.5); Protein,Urine Negative (Negative); Specific Gravity, Urine 1.020 (1.005-1.030); Urobilinogen,Urine 0.2 EU/dl (0.2)
[2025-03-10 07:54] LABS: Bilirubin,Urine 1+ (Negative)
[2025-03-10 08:02] LABS: Squamous Epithelial Cell,Urine Occasional #/hpf (0-5)
[2025-03-10 08:03] LABS: Bacteria,Urine Trace /lpf
== END 2025-03-10 08:45 | disposition home or self-care (01) ==
PROVIDERS: Emergency Provider Emergency Medicine; PCP Family Medicine
DX: K52.9 Noninfective gastroenteritis and colitis, unspecified (principal); R51.9 Headache, unspecified; B34.9 Viral infection, unspecified; E86.0 Dehydration; Z98.84 Bariatric surgery status; I10 Essential (primary) hypertension; E78.5 Hyperlipidemia, unspecified; Z79.899 Other long term (current) drug therapy
CPT/HCPCS: 71045; 74177; 80053; 81001; 83690; 83735; 84484; 85025; 85610; 93005; 96361; 96374; 96375; 99285; J1200; J1885; J7120; Q0164; Q9967